=== PATIENT | female | born 1955 | race Caucasian/White ===

== ENCOUNTER → 2017-02-07 | Outpatient (CLI) | payer MEDICAID | END | disposition home or self-care (01) | LOC: CFH 14:33 | PROVIDERS: ATTEND Internal Medicine | DX: C50.412 Malignant neoplasm of upper-outer quadrant of left female breast (principal); R91.1 Solitary pulmonary nodule; N28.1 Cyst of kidney, acquired; M47.894 Other spondylosis, thoracic region; Z98.890 Other specified postprocedural states | CPT/HCPCS: 71250 ==

== ENCOUNTER 2017-04-22 06:04 | Day surgery (SDC) | payer MEDICAID ==
[~2017-04-22] VITALS: Ht 160 cm; Wt 54.6 kg
[2017-04-22] MEDS ORDERED: VITAMIN D PO (06:58)
[2017-04-22] MEDS ORDERED: ERYT250T14 PO (06:58)
[2017-04-22] MEDS ORDERED: CALCIUM PO (06:58)
[2017-04-22] MEDS ORDERED: ALPH300C PO (06:58)
[2017-04-22] MEDS ORDERED: ELAVIL PO (06:58)
[2017-04-22 06:59] VITALS: BP 132/79
[2017-04-22] MEDS ORDERED: MIDAZOLAM 1 MG/ML, 5ML ONE (07:24)
[2017-04-22] MEDS ORDERED: FENTANYL PF 100 MCG/2ML ONE (07:25)
[2017-04-22] MEDS ORDERED: NALOXONE 1 MG/ML, 2ML ONE (07:25)
[2017-04-22] MEDS ORDERED: FLUMAZENIL 0.1 MG/1 ML, 5ML ONE (07:25)
== END 2017-04-22 11:00 ==
LOC: OUT 06:04
PROVIDERS: ATTEND Internal Medicine
DX: R91.1 Solitary pulmonary nodule (principal); F17.200 Nicotine dependence, unspecified, uncomplicated; C50.919 Malignant neoplasm of unspecified site of unspecified female breast
CPT/HCPCS: 32405; 71010; 77012; J2250; J3010; J2310

== ENCOUNTER → 2017-05-30 | Outpatient (CLI) | payer MEDICAID ==
[~2017-05-30] MED LIST: ALPH300C PO; CALCIUM PO; ELAVIL PO; ERYT250T14 PO; VITAMIN D PO
== END | disposition home or self-care (01) ==
LOC: PETCFH 09:17
PROVIDERS: ATTEND Internal Medicine
DX: C50.412 Malignant neoplasm of upper-outer quadrant of left female breast (principal); R91.1 Solitary pulmonary nodule
CPT/HCPCS: 78815; A9552

== ENCOUNTER → 2018-01-22 | Outpatient (CLI) | payer MEDICAID ==
[~2018-01-22] MED LIST changes: +OMNIPAQUE 350 MG/ML, 75ML BOTTLE ONE
== END | disposition home or self-care (01) ==
LOC: CFH 11:59
PROVIDERS: ATTEND Internal Medicine
DX: J43.2 Centrilobular emphysema (principal); Z85.3 Personal history of malignant neoplasm of breast
CPT/HCPCS: 71260; Q9967